=== PATIENT | female | born 1965 | race Caucasian/White ===

== ENCOUNTER → 2022-07-31 | Outpatient (REF) | payer OTHER ==
[2022-07-31 12:47] LABS: APPEARANCE, URINE MANUAL CLOUDY (CLEAR); BILIRUBIN, URINE MANUAL NEGATIVE (NEGATIVE); BLOOD URINE MANUAL POSITIVE (NEGATIVE); COLOR, URINE MANUAL YELLOW (YELLOW); GLUCOSE, URINE (UA) MANUAL NEGATIVE (NEGATIVE); KETONE, URINE MANUAL NEGATIVE (NEGATIVE); LEUKOCYTE ESTERASE, URINE MAN NEGATIVE (NEGATIVE); NITRITE, URINE MANUAL NEGATIVE (NEGATIVE); PROTEIN, URINE MANUAL 1+ mg/dL (NEGATIVE); UROBILINOGEN, URINE MANUAL NORMAL (NORMAL)
[2022-07-31 12:56] LABS: AMORPHOUS SEDIMENT, URINE LARGE AMOUNT (NEGATIVE)
[2022-07-31 12:58] LABS: BACTERIA, URINE SMALL AMOUNT; HYALINE CAST, URINE NONE SEEN /lpf (0-1); RBC, URINE 0-1 /hpf (0-3); SQUAMOUS EPITHELIAL CELL URINE SMALL AMOUNT /hpf (SMALL AMT)
[2022-07-31 13:00] LABS: URIC ACID CRYSTALS, URINE MOD AMOUNT /hpf
[2022-07-31 13:01] LABS: MUCUS, URINE SMALL AMOUNT (NEGATIVE)
[2022-07-31 13:34] LABS: ERYTHROCYTE SEDIMENTATION RATE 68 mm/hr (0-30)
[2022-07-31 13:37] LABS: BASO # 0.1 10^3/uL (0.0-0.2); BASO % 0.8 % (0.0-1.0); EOS # 0.1 10^3/uL (0.0-0.5); EOS % 1.1 % (0.0-3.0); HEMATOCRIT 34.5 % (36.0-47.0); HEMOGLOBIN 10.6 g/dl (12.0-15.5); LYMPH # 1.8 10^3/uL (1.5-5.0); LYMPH % 20.7 % (24.0-44.0); MEAN CORPUSCULAR HEMOGLOBIN 24.4 pg (27.0-33.0); MEAN CORPUSCULAR HGB CONC 30.7 g/dl (32.0-36.5); MEAN CORPUSCULAR VOLUME 79.5 fl (80.0-96.0); MONO # 0.9 10^3/uL (0.0-0.8); MONO % 9.6 % (2.0-8.0); NEUTROPHILS # 5.9 10^3/uL (1.5-8.5); NEUTROPHILS % 66.9 % (36.0-66.0); RED BLOOD COUNT 4.34 10^6/uL (4.00-5.40); WHITE BLOOD COUNT 8.9 10^3/uL (4.0-10.0)
[2022-07-31 13:43] LABS: PLATELET COUNT, AUTOMATED 428 10^3/uL (150-450)
[2022-07-31 14:32] LABS: TOTAL PROTEIN,RANDOM URINE 82.9 MG/DL (0.0-12.0)
[2022-07-31 14:35] LABS: ALBUMIN 2.9 GM/DL (3.2-5.2); ALT/SGPT 12 U/L (12-78); BILIRUBIN,TOTAL 0.2 MG/DL (0.2-1.0); BLOOD UREA NITROGEN 7 MG/DL (7-18); CALCIUM LEVEL 9.3 MG/DL (8.5-10.1); CARBON DIOXIDE LEVEL 31 MEQ/L (21-32); CHLORIDE LEVEL 101 MEQ/L (98-107); COMPLEMENT C3 180 MG/DL (90-180); COMPLEMENT C4 38 MG/DL (10-40); CREATININE FOR GFR 0.79 MG/DL (0.55-1.30); GLOMERULAR FILTRATION RATE > 60.0 (>51); GLUCOSE, FASTING 111 MG/DL (70-100); SODIUM LEVEL 135 MEQ/L (136-145)
== END ==
LOC: M SFHCRHEU 09:28
PROVIDERS: ATTEND Internal Medicine Rheumatology
DX: M35.3 Polymyalgia rheumatica (principal); H04.123 Dry eye syndrome of bilateral lacrimal glands; K51.811 Other ulcerative colitis with rectal bleeding; R76.8 Other specified abnormal immunological findings in serum

== ENCOUNTER → 2022-08-07 | Outpatient (CLI) | payer OTHER | LOC: M RAD 09:22 | PROVIDERS: ATTEND Internal Medicine Rheumatology | DX: M35.3 Polymyalgia rheumatica (principal); H04.123 Dry eye syndrome of bilateral lacrimal glands; K51.811 Other ulcerative colitis with rectal bleeding; R76.8 Other specified abnormal immunological findings in serum; M19.041 Primary osteoarthritis, right hand; M19.042 Primary osteoarthritis, left hand ==

== ENCOUNTER 2022-10-04 09:45 | Outpatient (CLI) | payer OTHER ==
[~2022-10-04] VITALS: Ht 165.1 cm; Wt 60.9 kg
[~2022-10-04 09:45] MED LIST: ALBUTEROL SULFATE 2.5 MG/0.5 ML INH NEB SOLN INH PRN; EPINEPHrine INJ 1 MG/ML 1ML AMP IM PRN; diphenhydrAMINE 50MG/ML VIAL IV PRN; methylPREDNISolone 125MG 2ML VIAL IV PRN
[2022-10-04 10:00] VITALS: BP 123/60
[2022-10-04] MEDS ORDERED: NS 1,000 ML IV SCH (10:15)
[2022-10-04] MEDS ORDERED: VEDOLIZUMAB 300 MG in NS 250 ML IV ONE (10:30)
[2022-10-04] MEDS ORDERED: VITMTA PO (10:32)
[2022-10-04] MEDS ORDERED: PROB250C PO (10:32)
[2022-10-04] MEDS ORDERED: UCER9TAB PO (10:32)
[2022-10-04] MEDS ORDERED: FLON1SPR NARES (10:32)
[2022-10-04] MEDS ORDERED: ENTY1INJ IV (10:32)
[2022-10-04] MEDS ORDERED: ZYRTTAB8 PO (10:32)
[2022-10-04 10:55] VITALS: BP 122/65
[2022-10-04 11:00] VITALS: BP 137/65
[2022-10-04 11:05] VITALS: BP 118/64
[2022-10-04 12:25] VITALS: BP 117/58
[2022-10-04 13:25] VITALS: BP 109/55
== END 2022-10-04 13:30 | disposition home or self-care (01) ==
LOC: M INFU 09:45
PROVIDERS: ATTEND Internal Medicine Gastroenterology
DX: K51.90 Ulcerative colitis, unspecified, without complications (principal)
CPT/HCPCS: 96365; 96366; J3380

== ENCOUNTER → 2022-10-18 | Outpatient (CLI) | payer OTHER ==
[~2022-10-18] VITALS: Ht 165.1 cm; Wt 60.9 kg
[~2022-10-18] MED LIST changes: -ALBUTEROL SULFATE 2.5 MG/0.5 ML INH NEB SOLN INH PRN; +ALBUTEROL SULFATE 2.5MG/0.5ML INH NEB SOLN INH PRN; +ENTY1INJ IV; +FLON1SPR NARES; +NS 1,000 ML IV SCH; +PROB250C PO; +UCER9TAB PO; +VEDOLIZUMAB 300 MG in NS 250 ML IV ONE; +VITMTA PO; +ZYRTTAB8 PO
[2022-10-18 09:05] VITALS: BP 127/57
[2022-10-18 11:05] VITALS: BP 105/50
== END ==
LOC: M INFU 09:05
PROVIDERS: ATTEND Internal Medicine Gastroenterology
DX: K51.90 Ulcerative colitis, unspecified, without complications (principal)
CPT/HCPCS: 96365; J3380

== ENCOUNTER 2022-11-15 09:45 | Outpatient (CLI) | payer OTHER ==
[~2022-11-15] VITALS: Ht 165.1 cm; Wt 62.5 kg
[2022-11-15 09:45] VITALS: BP 160/76
[~2022-11-15 09:45] MED LIST changes: +NS 1,000 ML IV ONE; -NS 1,000 ML IV SCH; -VEDOLIZUMAB 300 MG in NS 250 ML IV ONE
[2022-11-15] MEDS ORDERED: VEDOLIZUMAB 300 MG in NS 250 ML IV ONE (10:00)
[2022-11-15 11:28] VITALS: BP 115/55
== END 2022-11-15 11:30 | disposition home or self-care (01) ==
LOC: M INFU 09:45
PROVIDERS: ATTEND Internal Medicine Gastroenterology
DX: K51.90 Ulcerative colitis, unspecified, without complications (principal)
CPT/HCPCS: 96365; J3380

== ENCOUNTER 2023-01-10 10:00 | Outpatient (CLI) | payer OTHER ==
[~2023-01-10] VITALS: Ht 165.1 cm; Wt 64.5 kg
[2023-01-10 10:00] VITALS: BP 145/62
[~2023-01-10 10:00] MED LIST changes: -NS 1,000 ML IV ONE
[2023-01-10] MEDS ORDERED: VEDOLIZUMAB 300 MG in NS 250 ML IV ONE (11:00)
[2023-01-10] MEDS ORDERED: NS 1,000 ML IV SCH (11:00)
[2023-01-10 11:30] VITALS: BP 121/59
== END 2023-01-10 11:40 | disposition home or self-care (01) ==
LOC: M INFU 10:00
PROVIDERS: ATTEND Internal Medicine Gastroenterology
DX: K51.90 Ulcerative colitis, unspecified, without complications (principal)
CPT/HCPCS: 96365; J3380

== ENCOUNTER → 2023-02-19 | Outpatient (CLI) | payer OTHER ==
[~2023-02-19] MED LIST changes: -ALBUTEROL SULFATE 2.5MG/0.5ML INH NEB SOLN INH PRN; -EPINEPHrine INJ 1 MG/ML 1ML AMP IM PRN; -diphenhydrAMINE 50MG/ML VIAL IV PRN; -methylPREDNISolone 125MG 2ML VIAL IV PRN
[2023-02-19 11:34] LABS: BASO # 0.1 10^3/uL (0.0-0.2); BASO % 0.9 % (0.0-1.0); EOS # 0.6 10^3/uL (0.0-0.5); EOS % 6.5 % (0.0-3.0); HEMOGLOBIN 11.4 g/dl (12.0-15.5); LYMPH # 2.6 10^3/uL (1.5-5.0); LYMPH % 29.3 % (24.0-44.0); MEAN CORPUSCULAR HEMOGLOBIN 23.8 pg (27.0-33.0); MEAN CORPUSCULAR VOLUME 79.3 fl (80.0-96.0); MONO # 0.6 10^3/uL (0.0-0.8); MONO % 6.5 % (2.0-8.0); NEUTROPHILS # 4.9 10^3/uL (1.5-8.5); NEUTROPHILS % 56.5 % (36.0-66.0); PLATELET COUNT, AUTOMATED 450 10^3/uL (150-450); RED BLOOD COUNT 4.79 10^6/uL (4.00-5.40); WHITE BLOOD COUNT 8.7 10^3/uL (4.0-10.0)
[2023-02-19 11:39] LABS: APPEARANCE, URINE CLEAR (CLEAR); BACTERIA, URINE AUTO NEGATIVE (NEGATIVE); BILIRUBIN, URINE AUTO NEGATIVE (NEGATIVE); BLOOD, URINE BLOOD 2+ (NEGATIVE); COLOR, URINE YELLOW (YELLOW); GLUCOSE, URINE (UA) AUTO NEGATIVE (NEGATIVE); KETONE, URINE AUTO NEGATIVE (NEGATIVE); LEUKOCYTE ESTERASE, URINE AUTO TRACE (NEGATIVE); MUCUS, URINE SMALL (NEGATIVE); NITRITE, URINE AUTO NEGATIVE (NEGATIVE); PROTEIN, URINE AUTO NEGATIVE (NEGATIVE); RBC, URINE AUTO 2 /HPF (0-3); SPECIFIC GRAVITY URINE AUTO 1.018 (1.002-1.035); SQUAMOUS EPITHELIAL CELL UR AU 0 /HPF (0-6); UROBILINOGEN, URINE AUTO 0.2 mg/dL (0.0-2.0); WBC, URINE AUTO 3 /HPF (0-3)
[2023-02-19 11:53] LABS: TOTAL PROTEIN,RANDOM URINE 24.2 MG/DL (0.0-14.0)
[2023-02-19 11:57] LABS: ERYTHROCYTE SEDIMENTATION RATE 70 mm/hr (0-30)
[2023-02-19 11:58] LABS: CREATININE,RANDOM URINE 155.5 MG/DL
[2023-02-19 12:00] LABS: ALBUMIN 3.1 G/DL (3.2-5.2); ALKALINE PHOSPHATASE 87 U/L (46-116); ALT/SGPT 17 U/L (7.0-40); AST/SGOT 17 U/L (<34); BILIRUBIN,TOTAL 0.3 MG/DL (0.3-1.2); BLOOD UREA NITROGEN 10 MG/DL (9-23); CALCIUM LEVEL 8.8 MG/DL (8.3-10.6); CARBON DIOXIDE LEVEL 30 MMOL/L (20-31); CHLORIDE LEVEL 106 MMOL/L (98-107); CREATININE FOR GFR 0.79 MG/DL (0.55-1.30); GLOMERULAR FILTRATION RATE > 60.0 (>45); GLUCOSE, FASTING 87 MG/DL (74-106); POTASSIUM SERUM 3.8 MMOL/L (3.5-5.1); SODIUM LEVEL 141 MMOL/L (136-145); TOTAL PROTEIN 6.6 G/DL (5.7-8.2)
[2023-02-19 12:01] LABS: COMPLEMENT C3 154.6 MG/DL (90.0-170.0); COMPLEMENT C4 36.5 MG/DL (12-36)
== END ==
LOC: M LAB 10:05
PROVIDERS: ATTEND Internal Medicine Rheumatology
DX: M35.3 Polymyalgia rheumatica (principal); H04.123 Dry eye syndrome of bilateral lacrimal glands; K51.811 Other ulcerative colitis with rectal bleeding; R76.8 Other specified abnormal immunological findings in serum

== ENCOUNTER 2023-03-07 15:05 | Outpatient (CLI) | payer OTHER ==
[~2023-03-07] VITALS: Ht 165.1 cm; Wt 62.7 kg
[~2023-03-07 15:05] MED LIST changes: +ALBUTEROL SULFATE 2.5MG/0.5ML INH NEB SOLN INH PRN; +EPINEPHrine INJ 1 MG/ML 1ML AMP IM PRN; +diphenhydrAMINE 50MG/ML VIAL IV PRN; +methylPREDNISolone 125MG 2ML VIAL IV PRN
[2023-03-07 15:26] VITALS: BP 122/64
[2023-03-07] MEDS ORDERED: VEDOLIZUMAB 300 MG in NS 250 ML IV ONE (15:30)
[2023-03-07] MEDS ORDERED: NS 1,000 ML IV SCH (15:30)
[2023-03-07 16:53] VITALS: BP 110/56
== END 2023-03-07 16:50 | disposition home or self-care (01) ==
LOC: M INFU 15:05
PROVIDERS: ATTEND Internal Medicine Gastroenterology
DX: K51.90 Ulcerative colitis, unspecified, without complications (principal); Z88.8 Allergy status to other drugs, medicaments and biological substances

== ENCOUNTER 2023-05-08 08:45 | Outpatient (CLI) | payer OTHER ==
[~2023-05-08] VITALS: Ht 165.1 cm; Wt 141.0 kg
[2023-05-08 08:45] VITALS: BP 117/58; O2SAT 98
[~2023-05-08 08:45] MED LIST changes: +NS 1,000 ML IV SCH; +VEDOLIZUMAB 300 MG in NS 250 ML IV ONE
[2023-05-08 09:44] VITALS: BP 115/57; O2SAT 99
== END 2023-05-08 09:45 ==
LOC: M INFU 08:45
PROVIDERS: ATTEND Internal Medicine Gastroenterology
DX: K51.90 Ulcerative colitis, unspecified, without complications (principal); Z88.8 Allergy status to other drugs, medicaments and biological substances

== ENCOUNTER 2023-07-08 12:50 | Outpatient (CLI) | payer OTHER ==
[~2023-07-08] VITALS: Ht 165.1 cm; Wt 70.2 kg
[2023-07-08 12:50] VITALS: BP 130/61; O2SAT 100
[~2023-07-08 12:50] MED LIST changes: -NS 1,000 ML IV SCH; -VEDOLIZUMAB 300 MG in NS 250 ML IV ONE
[2023-07-08] MEDS ORDERED: NS 1,000 ML IV SCH (13:00)
[2023-07-08] MEDS ORDERED: IRON SUCROSE 200 MG in NS 100 ML OVER 1 HR IV ONE (13:00)
[2023-07-08 14:40] VITALS: BP 115/56; O2SAT 98
== END 2023-07-08 14:30 | disposition home or self-care (01) ==
LOC: M INFU 12:50
PROVIDERS: ATTEND Internal Medicine Hematology
DX: G35 Multiple sclerosis (principal); Z88.8 Allergy status to other drugs, medicaments and biological substances
CPT/HCPCS: 96365; J1756

== ENCOUNTER 2023-07-15 13:00 | Outpatient (CLI) | payer OTHER ==
[~2023-07-15] VITALS: Ht 165.1 cm; Wt 70.0 kg
[2023-07-15 12:55] VITALS: BP 123/58; O2SAT 99
[~2023-07-15 13:00] MED LIST changes: +IRON SUCROSE 200 MG in NS 100 ML OVER 1 HR IV ONE; +NS 1,000 ML IV SCH
[2023-07-15 14:00] VITALS: BP 131/70; O2SAT 100
== END 2023-07-15 14:05 ==
LOC: M INFU 13:00
PROVIDERS: ATTEND Internal Medicine Hematology
DX: D50.9 Iron deficiency anemia, unspecified (principal); Z88.1 Allergy status to other antibiotic agents
CPT/HCPCS: 96365; J1756

== ENCOUNTER 2023-08-28 08:05 | Outpatient (CLI) | payer OTHER ==
[~2023-08-28] VITALS: Ht 165.1 cm; Wt 69.5 kg
[~2023-08-28 08:05] MED LIST changes: -IRON SUCROSE 200 MG in NS 100 ML OVER 1 HR IV ONE; -NS 1,000 ML IV SCH
[2023-08-28] MEDS ORDERED: NS 1,000 ML IV SCH (08:30)
[2023-08-28] MEDS ORDERED: VEDOLIZUMAB 300 MG in NS 250 ML IV ONE (08:30)
[2023-08-28 08:31] VITALS: BP 138/60; TEMP 97.8; O2SAT 99
[2023-08-28 09:40] VITALS: BP 115/55; O2SAT 95
== END 2023-08-28 09:40 | disposition home or self-care (01) ==
LOC: M INFU 08:05
PROVIDERS: ATTEND Internal Medicine Gastroenterology
DX: K51.90 Ulcerative colitis, unspecified, without complications (principal); Z88.8 Allergy status to other drugs, medicaments and biological substances

== ENCOUNTER 2023-10-23 08:35 | Outpatient (CLI) | payer OTHER ==
[~2023-10-23] VITALS: Ht 165.1 cm; Wt 68.0 kg
[2023-10-23 08:35] VITALS: BP 110/55; TEMP 98.1; O2SAT 100
[~2023-10-23 08:35] MED LIST changes: +NS 1,000 ML IV SCH
[2023-10-23] MEDS ORDERED: VEDOLIZUMAB 300 MG in NS 250 ML IV ONE (08:50)
[2023-10-23 09:40] VITALS: BP 110/58; TEMP 97.8; O2SAT 98
== END 2023-10-23 09:45 | disposition home or self-care (01) ==
LOC: M INFU 08:35
PROVIDERS: ATTEND Internal Medicine Gastroenterology
DX: K51.90 Ulcerative colitis, unspecified, without complications (principal); Z88.8 Allergy status to other drugs, medicaments and biological substances

== ENCOUNTER 2023-12-18 08:29 | Outpatient (CLI) | payer OTHER ==
[~2023-12-18] VITALS: Ht 165.1 cm; Wt 70.4 kg
[2023-12-18 08:48] VITALS: BP 112/55; TEMP 98.5; O2SAT 100
[2023-12-18] MEDS: VEDOLIZUMAB 300 MG in NS 250 ML IV ONE (09:22)
[2023-12-18 09:57] VITALS: BP 128/61; TEMP 98.7; O2SAT 100
== END 2023-12-18 10:00 | disposition home or self-care (01) ==
LOC: M INFU 08:29
PROVIDERS: ATTEND Internal Medicine Gastroenterology
DX: K51.919 Ulcerative colitis, unspecified with unspecified complications (principal); Z88.8 Allergy status to other drugs, medicaments and biological substances

== ENCOUNTER 2024-02-11 09:30 | Outpatient (CLI) | payer OTHER ==
[~2024-02-11] VITALS: Ht 165.1 cm; Wt 72.0 kg
[2024-02-11 09:30] VITALS: BP 121/56; O2SAT 98
[~2024-02-11 09:30] MED LIST changes: +ALBUTEROL SULFATE 2.5MG/0.5ML INH NEB SOLN INH PRN; +EPINEPHrine INJ 1 MG/ML 1ML AMP IM PRN; +NS 1,000 ML IV SCH; +diphenhydrAMINE 50MG/ML VIAL IV PRN; +methylPREDNISolone 125MG 2ML VIAL IV PRN
[2024-02-11] MEDS: VEDOLIZUMAB 300 MG in NS 250 ML IV ONE (10:24)
[2024-02-11 11:05] VITALS: BP 117/58; O2SAT 100
== END 2024-02-11 11:05 | disposition home or self-care (01) ==
LOC: M INFU 09:30
PROVIDERS: ATTEND Internal Medicine Gastroenterology
DX: K51.919 Ulcerative colitis, unspecified with unspecified complications (principal); Z88.8 Allergy status to other drugs, medicaments and biological substances

== ENCOUNTER → 2024-02-11 | Outpatient (CLI) | payer OTHER ==
[~2024-02-11] MED LIST changes: -ALBUTEROL SULFATE 2.5MG/0.5ML INH NEB SOLN INH PRN; -EPINEPHrine INJ 1 MG/ML 1ML AMP IM PRN; -NS 1,000 ML IV SCH; -diphenhydrAMINE 50MG/ML VIAL IV PRN; -methylPREDNISolone 125MG 2ML VIAL IV PRN
[2024-02-13 11:09] LABS: DRVV SCREEN 37.8 SECONDS
[2024-02-13 12:15] LABS: PTT LUPUS TYPE ANTICOAG SCREEN 0.95 (0-1.20)
== END ==
LOC: M LAB 08:42
PROVIDERS: ATTEND Psychiatry & Neurology Neurology
DX: Z13.0 Encounter for screening for diseases of the blood and blood-forming organs and certain disorders involving the immune mechanism (principal); Z11.9 Encounter for screening for infectious and parasitic diseases, unspecified

== ENCOUNTER → 2024-02-11 | Outpatient (REF) | payer OTHER | LOC: M LAB REF 10:21 | PROVIDERS: ATTEND Internal Medicine Gastroenterology | DX: K51.90 Ulcerative colitis, unspecified, without complications (principal) ==

== ENCOUNTER 2024-04-07 09:10 | Outpatient (CLI) | payer OTHER ==
[~2024-04-07] VITALS: Ht 165.1 cm; Wt 71.6 kg
[~2024-04-07 09:10] MED LIST changes: -NS 1,000 ML IV SCH
[2024-04-07] MEDS ORDERED: NS 1,000 ML IV SCH (09:30)
[2024-04-07 09:40] VITALS: BP 121/56; O2SAT 100
[2024-04-07] MEDS: VEDOLIZUMAB 300 MG in NS 250 ML IV ONE (10:08)
[2024-04-07 10:45] VITALS: BP 109/59; O2SAT 99
== END 2024-04-07 10:50 ==
LOC: M INFU 09:10
PROVIDERS: ATTEND Internal Medicine Gastroenterology
DX: K51.90 Ulcerative colitis, unspecified, without complications (principal); Z88.8 Allergy status to other drugs, medicaments and biological substances

== ENCOUNTER 2024-05-26 09:25 | Outpatient (CLI) | payer OTHER ==
[~2024-05-26] VITALS: Ht 165.1 cm; Wt 70.3 kg
[2024-05-26 09:25] VITALS: BP 96/48; O2SAT 99
[~2024-05-26 09:25] MED LIST changes: +NS 1,000 ML IV SCH
[2024-05-26] MEDS: VEDOLIZUMAB 300 MG in NS 250 ML IV ONE (10:19)
[2024-05-26 11:00] VITALS: BP 113/53; O2SAT 100
== END 2024-05-26 11:00 | disposition home or self-care (01) ==
LOC: M INFU 09:25
PROVIDERS: ATTEND Internal Medicine Gastroenterology
DX: K51.90 Ulcerative colitis, unspecified, without complications (principal); Z88.8 Allergy status to other drugs, medicaments and biological substances

== ENCOUNTER 2024-07-20 09:30 | Outpatient (CLI) | payer OTHER ==
[~2024-07-20] VITALS: Ht 165.1 cm; Wt 72.1 kg
[2024-07-20 09:37] VITALS: BP 131/60; O2SAT 99
[2024-07-20] MEDS: VEDOLIZUMAB 300 MG in NS 250 ML IV ONE (10:17)
[2024-07-20 11:00] VITALS: BP 145/71; O2SAT 99
== END 2024-07-20 11:00 | disposition home or self-care (01) ==
LOC: M INFU 09:30
PROVIDERS: ATTEND Internal Medicine Gastroenterology
DX: K51.919 Ulcerative colitis, unspecified with unspecified complications (principal); Z88.8 Allergy status to other drugs, medicaments and biological substances

== ENCOUNTER 2024-09-07 09:34 | Outpatient (CLI) | payer OTHER ==
[~2024-09-07] VITALS: Ht 165.1 cm; Wt 71.0 kg
[2024-09-07 10:05] VITALS: BP 110/54; O2SAT 100
[2024-09-07] MEDS: VEDOLIZUMAB 300 MG in NS 250 ML IV ONE (10:33)
[2024-09-07 11:07] VITALS: BP 106/51; O2SAT 100
== END 2024-09-07 11:15 ==
LOC: M INFU 09:34
PROVIDERS: ATTEND Internal Medicine Gastroenterology
DX: K51.90 Ulcerative colitis, unspecified, without complications (principal); Z88.8 Allergy status to other drugs, medicaments and biological substances

== ENCOUNTER 2024-10-26 10:00 | Outpatient (CLI) | payer OTHER ==
[~2024-10-26] VITALS: Ht 165.1 cm; Wt 71.0 kg
[~2024-10-26 10:00] MED LIST changes: +NS (Normal Saline) 0.9% 1,000 ML IV SCH; -NS 1,000 ML IV SCH
[2024-10-26 10:08] VITALS: BP 116/52; O2SAT 97
[2024-10-26] MEDS: VEDOLIZUMAB 300 MG in NS 250 ML IV ONE (10:46)
[2024-10-26 11:20] VITALS: BP 119/60; O2SAT 100
== END 2024-10-26 11:20 ==
LOC: M INFU 10:00
PROVIDERS: ATTEND Internal Medicine Gastroenterology
DX: K51.90 Ulcerative colitis, unspecified, without complications (principal); Z88.8 Allergy status to other drugs, medicaments and biological substances

== ENCOUNTER → 2024-12-14 | Outpatient (CLI) | payer OTHER ==
[~2024-12-14] VITALS: Ht 165.1 cm; Wt 71.8 kg
[~2024-12-14] MED LIST changes: -NS (Normal Saline) 0.9% 1,000 ML IV SCH
[2024-12-14 09:50] VITALS: BP 120/58; O2SAT 100
[2024-12-14] MEDS: VEDOLIZUMAB 300 MG in NS 250 ML IV ONE (10:34)
[2024-12-14 11:09] VITALS: BP 114/53; O2SAT 98
== END ==
LOC: M INFU 09:43
PROVIDERS: ATTEND Internal Medicine Gastroenterology
DX: K51.919 Ulcerative colitis, unspecified with unspecified complications (principal); Z88.8 Allergy status to other drugs, medicaments and biological substances

== ENCOUNTER 2025-02-01 09:51 | Outpatient (CLI) | payer OTHER ==
[~2025-02-01] VITALS: Ht 165.1 cm; Wt 72.0 kg
[~2025-02-01 09:51] MED LIST changes: +ALBUTEROL SULFATE 2.5MG/0.5ML INH CONCENTRATE NEB SOLN INH PRN; -ALBUTEROL SULFATE 2.5MG/0.5ML INH NEB SOLN INH PRN
[2025-02-01 10:00] VITALS: BP 124/60; O2SAT 100
[2025-02-01] MEDS: VEDOLIZUMAB 300 MG in NS 250 ML IV ONE (10:46)
[2025-02-01 11:20] VITALS: BP 113/58; O2SAT 100
== END 2025-02-01 11:30 ==
LOC: M INFU 09:51
PROVIDERS: ATTEND Internal Medicine Gastroenterology
DX: K51.90 Ulcerative colitis, unspecified, without complications (principal); Z88.8 Allergy status to other drugs, medicaments and biological substances

== ENCOUNTER 2025-05-12 16:03 | Outpatient (CLI) | payer OTHER ==
[~2025-05-12 16:03] MED LIST changes: +ALBUTEROL SULFATE 2.5 MG/0.5 ML INH CONCENTRATE NEB SOLN INH PRN; -ALBUTEROL SULFATE 2.5MG/0.5ML INH CONCENTRATE NEB SOLN INH PRN; +diphenhydrAMINE 50 MG/ML VIAL IV PRN; -diphenhydrAMINE 50MG/ML VIAL IV PRN; -methylPREDNISolone 125MG 2ML VIAL IV PRN
[2025-05-12] MEDS ORDERED: NS (Normal Saline) 0.9% 1,000 ML IV SCH (16:30)
[2025-05-12] MEDS: VEDOLIZUMAB 300 MG in NS 250 ML IV ONE (16:37)
[2025-05-12 17:16] VITALS: BP 147/68; O2SAT 98
== END 2025-05-12 17:10 ==
LOC: M INFU 16:03
PROVIDERS: ATTEND Internal Medicine Gastroenterology
DX: K51.90 Ulcerative colitis, unspecified, without complications (principal); Z88.8 Allergy status to other drugs, medicaments and biological substances

== ENCOUNTER 2025-06-30 11:32 | Outpatient (CLI) | payer OTHER ==
[~2025-06-30] VITALS: Ht 165.1 cm; Wt 72.2 kg
[2025-06-30 11:45] VITALS: BP 117/56; O2SAT 100
[2025-06-30] MEDS ORDERED: NS (Normal Saline) 0.9% 1,000 ML IV SCH (12:00)
[2025-06-30] MEDS: VEDOLIZUMAB 300 MG in NS 250 ML IV ONE (12:19)
[2025-06-30 13:00] VITALS: BP 130/63; O2SAT 100
== END 2025-06-30 13:00 | disposition home or self-care (01) ==
LOC: M INFU 11:32
PROVIDERS: ATTEND Internal Medicine Gastroenterology
DX: K51.90 Ulcerative colitis, unspecified, without complications (principal); Z88.8 Allergy status to other drugs, medicaments and biological substances

== ENCOUNTER 2025-08-18 11:47 | Outpatient (CLI) | payer OTHER ==
[~2025-08-18] VITALS: Ht 166.4 cm; Wt 75.0 kg
[~2025-08-18 11:47] MED LIST changes: +NS (Normal Saline) 0.9% 1,000 ML IV SCH
[2025-08-18 12:06] VITALS: BP 106/51; O2SAT 100
[2025-08-18] MEDS: VEDOLIZUMAB 300 MG in NS 250 ML IV ONE (12:43)
[2025-08-18 13:20] VITALS: BP 110/56; O2SAT 99
== END 2025-08-18 13:22 | disposition home or self-care (01) ==
LOC: M INFU 11:47
PROVIDERS: ATTEND Internal Medicine Gastroenterology
DX: K51.90 Ulcerative colitis, unspecified, without complications (principal); Z88.8 Allergy status to other drugs, medicaments and biological substances

== ENCOUNTER 2025-10-07 13:13 | Outpatient (CLI) | payer OTHER ==
[~2025-10-07] VITALS: Ht 165.1 cm; Wt 75.5 kg
[2025-10-07 13:30] VITALS: BP 117/56; O2SAT 99
[2025-10-07] MEDS: VEDOLIZUMAB 300 MG in NS 250 ML IV ONE (14:26)
[2025-10-07 15:05] VITALS: BP 107/52; O2SAT 100
== END 2025-10-07 15:10 | disposition home or self-care (01) ==
LOC: M INFU 13:13
PROVIDERS: ATTEND Internal Medicine Gastroenterology
DX: K51.90 Ulcerative colitis, unspecified, without complications (principal); Z88.8 Allergy status to other drugs, medicaments and biological substances